=== PATIENT | male | born 1985 | race Hispanic/Latino ===

== ENCOUNTER 2018-06-21 21:41 | Emergency (ER) | payer BC ==
[2018-06-21] MEDS ORDERED: IPRATROPIUM/ALBUTEROL SULFATE 3 ML SOLUTION IH ONE (22:31)
== END 2018-06-21 23:29 | disposition home or self-care (01) ==
LOC: EDH 21:41
DX: J18.1 Lobar pneumonia, unspecified organism (principal); J40 Bronchitis, not specified as acute or chronic; Z79.899 Other long term (current) drug therapy
CPT/HCPCS: 71046; 93005; 94640

== ENCOUNTER 2022-01-18 09:50 | Emergency (ER) | payer OTHER ==
[~2022-01-18] VITALS: Ht 190.5 cm; Wt 140.6 kg
[~2022-01-18 09:50] MED LIST: FLUT16H NASAL; LORA10TA7 PO
[2022-01-18] MEDS ORDERED: AMOX500C2 PO (11:18)
[2022-01-18 11:28] VITALS: BP 136/92
== END 2022-01-18 11:36 | disposition home or self-care (01) ==
LOC: EDH 09:50
DX: H66.91 Otitis media, unspecified, right ear (principal); Z20.822 Contact with and (suspected) exposure to COVID-19; Z79.899 Other long term (current) drug therapy
CPT/HCPCS: 99283; 87635; 87880; 87804 ×2; C9803

== ENCOUNTER 2022-03-22 03:48 | Emergency (ER) | payer OTHER ==
[~2022-03-22] VITALS: Ht 190.5 cm; Wt 156.5 kg
[~2022-03-22 03:48] MED LIST changes: +AMOX500C2 PO
[2022-03-22 04:23] LABS: BASOPHILS % (AUTO) 0.6 % (0.0-5.0); EOSINOPHILS % (AUTO) 4.3 % (0.0-8.0); HEMATOCRIT 44.2 % (42-54); LYMPHOCYTES % (AUTO) 40.1 % (21.0-51.0); MEAN CORPUSCULAR HEMOGLOBIN 30.9 pg (27.0-33.0); MEAN CORPUSCULAR HGB CONC 34.8 g/dL (32.0-36.0); MEAN CORPUSCULAR VOLUME 88.8 fL (79-99); NEUTROPHILS % (AUTO) 47.6 % (40.0-77.0); PLATELET COUNT (AUTO) 171 K/uL (130-400); RED BLOOD CELL COUNT(AUTO) 4.98 MIL/uL (4.50-6.20); RED CELL DISTRIBUTION WIDTH 12.5 % (11.0-15.5); WHITE BLOOD COUNT (AUTO) 12.4 K/uL (4.8-10.8)
[2022-03-22 04:24] LABS: APPEARANCE,URINE CLEAR (CLEAR); BILIRUBIN,URINE NEGATIVE (NEGATIVE); COLOR,URINE LIGHT-YELLOW (YELLOW); GLUCOSE, URINE (UA) NEGATIVE (NEGATIVE); KETONES,URINE NEGATIVE (NEGATIVE); LEUKOCYTE ESTERASE ,URINE NEGATIVE Leu/uL (NEGATIVE); NITRATE,URINE NEGATIVE (NEGATIVE); OCCULT BLOOD,URINE NEGATIVE (NEGATIVE); PH,URINE 6.5 (5.0-8.0); PROTEIN,URINE NEGATIVE (NEGATIVE); UROBILINOGEN,URINE 0.2 mg/dL (0.2-1.0)
[2022-03-22 04:30] LABS: POTASSIUM 3.9 mmol/L (3.5-5.1)
[2022-03-22] MEDS ORDERED: ONDANSETRON 4MG INJ IVP ONE (04:30)
[2022-03-22] MEDS ORDERED: HYDROMORPHONE 0.5 MG SYG (0.5MG/0.5ML) IVP ONE (04:30)
[2022-03-22 04:35] LABS: ALBUMIN 3.6 g/dL (3.5-5.0); TOTAL PROTEIN, SERUM 7.1 g/dL (6.0-8.3)
[2022-03-22] MEDS ORDERED: IOHEXOL 350 MG/ML 100ML INFUS..BTL IV ONE (04:56)
[2022-03-22 05:25] VITALS: BP 175/83
[2022-03-22] MEDS ORDERED: IBUP-2076 PO (06:10)
[2022-03-22] MEDS ORDERED: OMEP40CA21 PO (06:10)
[2022-03-22] MEDS ORDERED: ONDA-104 PO (06:10)
== END 2022-03-22 06:32 | disposition home or self-care (01) ==
LOC: EDH 03:48
DX: R10.11 Right upper quadrant pain (principal); F17.200 Nicotine dependence, unspecified, uncomplicated; Z79.2 Long term (current) use of antibiotics; Z79.899 Other long term (current) drug therapy
CPT/HCPCS: 99285; 74177; 96374; 76705; 96375; 82150; 80053; 83690; 85025; 81003; 36415; J2405; J1170; Q9967

== ENCOUNTER 2023-01-30 20:03 | Emergency (ER) | payer OTHER ==
[~2023-01-30] VITALS: Ht 193 cm; Wt 151.6 kg
[~2023-01-30 20:03] MED LIST changes: +IBUP-2076 PO; +OMEP40CA21 PO; +ONDA-104 PO
[2023-01-30 20:38] LABS: RAPID GROUP A STREP negative (NEGATIVE)
[2023-01-30 20:45] VITALS: BP 140/70; PULSE 78; RESP 18; O2SAT 97
[2023-01-30 20:46] LABS: SARS-CoV-2, RNA, NAAT NEGATIVE SARS CoV-2 (NEGATIVE)
[2023-01-30 20:52] LABS: INFLUENZA TYPE A Negative For Type A (NEGATIVE); INFLUENZA TYPE B Negative For Type B (NEGATIVE)
[2023-01-30] MEDS ORDERED: IBUPROFEN 800 MG TAB PO ONE (21:00)
[2023-01-30] MEDS ORDERED: AMOX/CLAV 875/125MG TAB PO ONE (21:00)
[2023-01-30] MEDS ORDERED: AMOX1TAB16 PO (21:16)
[2023-01-30] MEDS ORDERED: IBUP-2077 PO (21:16)
== END 2023-01-30 21:24 | disposition home or self-care (01) ==
LOC: EDH 20:03
DX: J03.90 Acute tonsillitis, unspecified (principal); R50.9 Fever, unspecified; F17.200 Nicotine dependence, unspecified, uncomplicated; Z20.822 Contact with and (suspected) exposure to COVID-19; Z79.899 Other long term (current) drug therapy; Z98.890 Other specified postprocedural states
CPT/HCPCS: 99283; 87635; 87880; 87804 ×2; C9803